=== PATIENT | female | born 1980 | race Caucasian/White ===

== ENCOUNTER 2021-12-24 06:57 | Emergency (ER) | payer SELFPAY ==
[2021-12-24] MEDS ORDERED: Sodium Chloride 0.9% 10 ML Syringe FLUSH PRN (07:16)
[2021-12-24] MEDS ORDERED: Sodium Chloride 0.9% 1,000 ML IV ONE (08:46)
[2021-12-24] MEDS ORDERED: cefTRIAXone 1 GM in Sodium Chloride 0.9% 50 ML IV ONE (08:46)
== END 2021-12-24 10:07 | disposition home or self-care (01) ==
LOC: DL.ED 06:57
DX: N39.0 Urinary tract infection, site not specified (principal); E86.0 Dehydration; Z91.048 Other nonmedicinal substance allergy status; Z79.899 Other long term (current) drug therapy; Z86.16 Personal history of COVID-19
CPT/HCPCS: 36415; 80053; 81001; 82728; 83540; 83550; 83735; 84443; 85025; 87086; 93005; 93010; 96365; 99284; 99285-25; J0696; J7030

== ENCOUNTER 2022-09-18 12:54 | Emergency (ER) | payer OTHER ==
[2022-09-18] MEDS ORDERED: Sodium Chloride 0.9% 10 ML Syringe FLUSH PRN (13:30)
[2022-09-18 13:47] LABS: BASOPHILS PERCENT AUTO 0.2 % (0.0-1.0); HEMATOCRIT 39.6 % (37.0-47.0); HEMOGLOBIN 13.6 g/dL (12.0-16.0); LYMPHOCYTES PERCENT AUTO 4.6 % (20.5-50.1); MEAN CORPUSCULAR HEMOGLOBIN 29.9 pg (27.0-34.0); MEAN CORPUSCULAR HGB CONC 34.3 g/dL (33.0-35.0); MONOCYTES PERCENT AUTO 1.5 % (2-8); NEUTROPHILS PERCENT AUTO 93.7 % (42.2-75.2); PLATELET COUNT,PLT 355 10^3/uL (150-450); RED BLOOD CELL COUNT 4.55 10^6/uL (4.2-5.4); WHITE BLOOD CELL COUNT,WBC 13.2 10^3/uL (5.0-10.0)
[2022-09-18 14:09] LABS: A/G RATIO 1.2; ALANINE AMINOTRANSFERASE,ALT 25 U/L (14-59); ALBUMIN 3.8 g/dL (3.4-5.0); ALKALINE PHOSPHATASE 96 U/L (46-116); AMYLASE 64 U/L (25-115); ANION GAP 16.5 mEq/L (7-13); ASPARTATE AMNIOTRANSFERASE,AST 15 U/L (15-37); BILIRUBIN TOTAL 0.4 mg/dL (0.2-1.0); BLOOD UREA NITROGEN,BUN 17 mg/dL (7-18); C-REACTIVE PROTEIN < 0.2 mg/dL (0.0-0.9); CARBON DIOXIDE,CO2 24 mmol/L (21-32); CHLORIDE,CL 100 mmol/L (98-107); CREATININE 1.21 mg/dL (0.55-1.02); EST CRCL DRUG DOSING (CG) 53.52 mL/min; ESTIMATED GFR 57 mL/min (>=60); GLUCOSE RANDOM 236 mg/dL (70-99); LIPASE 84 U/L (73-393); POTASSIUM,K 3.5 mmol/L (3.5-5.1); SODIUM,NA 137 mmol/L (136-145)
[2022-09-18] MEDS ORDERED: Sodium Chloride 0.9% 1,000 ML IV ONE (14:24)
[2022-09-18 14:32] LABS: HEMOGLOBIN A1C 5.2 % (<5.7)
[2022-09-18 14:35] LABS: APPEARANCE,URINE CLEAR (CLEAR); BILIRUBIN,URINE NEGATIVE (NEGATIVE); COLOR,URINE YELLOW (YELLOW); GLUCOSE,URINE 100 (NEGATIVE); KETONES,URINE NEGATIVE (NEGATIVE); LEUKOCYTE ESTERASE,URINE TRACE (NEGATIVE); NITRITE,URINE NEGATIVE (NEGATIVE); OCCULT BLOOD,URINE NEGATIVE (NEGATIVE); PROTEIN,URINE NEGATIVE (NEGATIVE); UROBILINOGEN,URINE 0.2 mg/dL (0.2-1.0)
[2022-09-18 14:37] LABS: LACTIC ACID 3.3 mmol/L (0.4-2.0)
[2022-09-18 14:51] LABS: AMORPHOUS SEDIMENT,URINE FEW /HPF (NOT SEEN); BACTERIA,URINE MODERATE /HPF (0-FEW/HPF); EPITHELIAL CELLS,URINE NOT SEEN /HPF (NOT SEEN); MUCUS,URINE RARE /LPF (NOT SEEN); RBC,URINE 0-5 /HPF (0-5); WBC,URINE 0-5 /HPF (0-5/HPF)
[2022-09-18 15:01] LABS: B-TYPE NATRIURETIC PEPTIDE,BNP 7 pg/ml (0-100)
== END 2022-09-18 16:10 | disposition home or self-care (01) ==
LOC: DL.ED 12:54
DX: R07.89 Other chest pain (principal); E86.0 Dehydration; U09.9 Post COVID-19 condition, unspecified; R73.9 Hyperglycemia, unspecified; J45.909 Unspecified asthma, uncomplicated; Z91.09 Other allergy status, other than to drugs and biological substances; Z79.51 Long term (current) use of inhaled steroids
CPT/HCPCS: 36415; 71046; 80053; 81001; 82150; 83036; 83605; 83690; 83735; 83880; 84145; 84484; 85025; 85379; 86140; 87040; 87086; 93005; 93010; 96360; 99284; 99285-25; J7030

== ENCOUNTER 2023-02-06 05:26 | Day surgery (SDC) | payer OTHER ==
[2023-02-06] MEDS ORDERED: Dextrose 5%-0.45% NaCl 1,000 ML IV SCH (06:00)
[2023-02-06] MEDS ORDERED: fentaNYL 100 MCG/2 ML SDV ONE (06:13)
[2023-02-06] MEDS ORDERED: Midazolam 1 MG/ML 2 ML SDV ONE (06:13)
[2023-02-06] MEDS ORDERED: fentaNYL 100 MCG/2 ML SDV IV ONE ×2 (06:34→06:35)
[2023-02-06] MEDS ORDERED: Midazolam 1 MG/ML 2 ML SDV IV ONE ×2 (06:35→06:36)
== END 2023-02-06 08:40 | disposition home or self-care (01) ==
LOC: DL.ENDO 05:26
PROVIDERS: ATTEND Internal Medicine Gastroenterology
DX: K31.89 Other diseases of stomach and duodenum (principal); F41.1 Generalized anxiety disorder; Z86.16 Personal history of COVID-19; Z87.09 Personal history of other diseases of the respiratory system
CPT/HCPCS: 43239; 81025; 87077; J2250; J3010; J7042

== ENCOUNTER 2023-04-23 06:26 | Day surgery (SDC) | payer OTHER ==
[2023-04-23] MEDS ORDERED: Dextrose 5%-0.45% NaCl 1,000 ML IV SCH ×2 (06:30→07:00)
[2023-04-23] MEDS ORDERED: fentaNYL 100 MCG/2 ML SDV ONE (06:39)
[2023-04-23] MEDS ORDERED: Midazolam 1 MG/ML 2 ML SDV ONE (06:39)
[2023-04-23] MEDS ORDERED: fentaNYL 100 MCG/2 ML SDV IV ONE ×6 (07:32→07:50)
[2023-04-23] MEDS ORDERED: Midazolam 1 MG/ML 2 ML SDV IV ONE ×6 (07:33→07:45)
== END 2023-04-23 10:25 | disposition home or self-care (01) ==
LOC: DL.ENDO 06:26
PROVIDERS: ATTEND Internal Medicine Gastroenterology
DX: D12.5 Benign neoplasm of sigmoid colon (principal); K21.9 Gastro-esophageal reflux disease without esophagitis; J45.909 Unspecified asthma, uncomplicated; Z86.16 Personal history of COVID-19; K58.9 Irritable bowel syndrome, unspecified
CPT/HCPCS: 45385; 81025; J2250; J3010; J7042

== ENCOUNTER 2024-06-30 13:56 | Emergency (ER) | payer OTHER ==
[2024-06-30 14:45] LABS: BASOPHILS PERCENT AUTO 0.7 % (0.0-1.0); EOSINOPHILS PERCENT AUTO 0.7 % (1.0-3.0); HEMATOCRIT 41.3 % (37.0-47.0); HEMOGLOBIN 13.8 g/dL (12.0-16.0); LYMPHOCYTES PERCENT AUTO 25.8 % (20.5-50.1); MEAN CORPUSCULAR HEMOGLOBIN 29.7 pg (27.0-34.0); MEAN CORPUSCULAR HGB CONC 33.4 g/dL (33.0-35.0); MONOCYTES PERCENT AUTO 12.1 % (2-8); NEUTROPHILS PERCENT AUTO 60.7 % (42.2-75.2); PLATELET COUNT,PLT 358 10^3/uL (150-450); RED BLOOD CELL COUNT 4.64 10^6/uL (4.2-5.4); WHITE BLOOD CELL COUNT,WBC 7.4 10^3/uL (5.0-10.0)
[2024-06-30 15:07] LABS: B-TYPE NATRIURETIC PEPTIDE,BNP 7 pg/ml (0-100)
[2024-06-30 15:31] LABS: A/G RATIO 1.3; ALANINE AMINOTRANSFERASE,ALT 36 U/L (14-59); ALBUMIN 4.2 g/dL (3.4-5.0); ALKALINE PHOSPHATASE 86 U/L (46-116); ANION GAP 11.9 mEq/L (7-13); ASPARTATE AMNIOTRANSFERASE,AST 18 U/L (15-37); BILIRUBIN TOTAL 0.7 mg/dL (0.2-1.0); BLOOD UREA NITROGEN,BUN 14 mg/dL (7-18); BUN/CREATININE RATIO 15.6 (No establ ref range); CALCIUM 9.5 mg/dL (8.5-10.1); CARBON DIOXIDE,CO2 29 mmol/L (21-32); CHLORIDE,CL 104 mmol/L (98-107); EST CRCL DRUG DOSING (CG) 67.17 mL/min; GLUCOSE RANDOM 93 mg/dL (70-99); MAGNESIUM 2.1 mg/dL (1.8-2.4); POTASSIUM,K 3.9 mmol/L (3.5-5.1); PROTEIN TOTAL,TP 7.5 g/dL (6.4-8.2); SODIUM,NA 141 mmol/L (136-145)
[2024-06-30 15:45] LABS: C-REACTIVE PROTEIN < 0.50 ng/dL (<=0.50); ESTIMATED GFR 81 mL/min (>=60)
== END 2024-06-30 16:07 | disposition home or self-care (01) ==
LOC: DL.ED 13:56
DX: R06.02 Shortness of breath (principal); R53.82 Chronic fatigue, unspecified; Z91.09 Other allergy status, other than to drugs and biological substances; Z79.899 Other long term (current) drug therapy; Z86.16 Personal history of COVID-19
CPT/HCPCS: 36415; 71046; 80053; 82607; 83735; 83880; 84484; 85025; 85610; 86140; 87428-QW; 93005; 99285